=== PATIENT | female | born 1955 | race Caucasian/White ===

== ENCOUNTER 2019-08-19 14:53 | Emergency (ER) | payer BC ==
[2019-08-19 15:30] VITALS: BP 125/90
--- NOTE | 2019-08-19 15:56 | UC ---
Knee Pain HPI - HPI Summary HPI Summary: 64-year-old female presents with complaints of 3-4 day history of right posterior knee pain. Describes the pain as a "deep, pulling" that worsens with full extension and with weightbearing. Today she felt a "pop" in the back of the knee and has had increased pain since that time. No known injury. Denies erythema, edema, increased warmth, numbness, tingling, chest pain, shortness of breath, calf pain or swelling. - History of Current Complaint Chief Complaint: UCLowerExtremity Stated Complaint: RIGHT KNEE PAIN Time Seen by Provider: 08/19/19 15:29 Hx Obtained From: Patient Pain Intensity: 4 - Allergies/Home Medications Allergies/Adverse Reactions: Allergies Allergy/AdvReac Type Severity Reaction Status Date / Time No Known Allergies Allergy Verified 08/19/19 15:30 Home Medications: Home Medications Tiotropium Brom/Olodaterol [Stiolto Respimat Inh [place] (60 puff)] 2 puff INH DAILY 08/19/19 [History Confirmed 08/19/19] PMH/Surg Hx/FS Hx/Imm Hx Respiratory History: COPD - Surgical History Surgical History: Yes Surgery Procedure, Year, and Place: choley. bunion removed on right foot - Family History Known Family History: Positive: Non-Contributory - Social History Lives: With Family Alcohol Use: None Substance Use Type: None Smoking Status (MU): Former Smoker When Did the Patient Quit Smoking/Using Tobacco: 38 yrs ago Review of Systems All Other Systems Reviewed And Are Negative: Yes Constitutional: Negative: Fever, Chills Skin: Negative: Rash, Bruising Respiratory: Negative: Shortness Of Breath Cardiovascular: Negative: Chest Pain Physical Exam - Summary Physical Exam Summary: GENERAL APPEARANCE: Well developed, well nourished, alert and cooperative, older adult female who appears to be in no acute distress. CARDIAC: Normal S1 and S2. No S3, S4 or murmurs. Rhythm is regular. There is no peripheral edema, cyanosis or pallor. Extremities are warm and well perfused. Capillary refill is less than 2 seconds. Peripheral pulses intact. LUNGS: Clear to auscultation without rales, rhonchi, wheezing or diminished breath sounds. ABDOMEN: Positive bowel sounds. Soft, nondistended, nontender. No guarding or rebound. No masses or hepatosplenomegally. MUSKULOSKELETAL: Normal muscular development. Posterior right knee tenderness with a cystic lesion noted with knee at full extension. Full passive ROM. No crepitus, erythema, or edema. Calf supple and non-tender. SKIN: Skin normal color, texture and turgor with no lesions or eruptions. Triage Information Reviewed: Yes Vital Signs: Initial Vital Signs Temp 99.3 F 08/19/19 15:19 Pulse 73 08/19/19 15:19 Resp 18 08/19/19 15:19 BP 125/90 08/19/19 15:19 Pulse Ox 99 08/19/19 15:19 Vital Signs Reviewed: Yes Diagnostics - Radiology No standard instances Radiology Interpretation Completed By: Radiologist Summary of Radiographic Findings: Order Information: KNEE RIGHT 4+ VWS. Indication: Right knee pain. 4 views of the right knee demonstrates no fracture or dislocation. No other bone or joint abnormality is noted. IMPRESSION: No fracture of the right knee is noted. Knee Pain Course/Dx - Course Course Of Treatment: 64-year-old female presents with complaints of 3-4 day history of right posterior knee pain. Describes the pain as a "deep, pulling" that worsens with full extension and with weightbearing. Today she felt a "pop" in the back of the knee and has had increased pain since that time. No known injury. Denies erythema, edema, increased warmth, numbness, tingling, chest pain, shortness of breath, calf pain or swelling. Afebrile. Vital signs stable. Patient had posterior right knee tenderness with a cystic lesion noted with knee at full extension. Full passive ROM. No crepitus, erythema, or edema. Calf supple and non-tender. Patient was given naproxen 500 mg PO for the pain. X-ray demonstrated no fracture or dislocation. Reviewed results with the patient. Discussed with the patient that I suspect that she may have a Padilla's cyst would be unable to confirm the diagnosis at this time as I do not have ultrasound available. Recommending conservative treatment including NSAIDs and RACE. She is to follow-up with her primary care provider or with orthopedic surgery in 5-7 days if symptoms are not improving. Anticipatory guidance him warning symptoms were reviewed with the patient. Verbalizes understanding and agrees with plan of care. - Differential Dx/Diagnosis Differential Diagnosis/HQI/PQRI: Bursitis, DVT, Fracture (Closed), Gout, Infection, Sprain, Tendonitis, Other - Arthritis, Padilla's cyst Provider Diagnosis: Posterior right knee pain Discharge ED - Sign-Out/Discharge Documenting (check all that apply): Patient Departure All imaging exams completed and their final reports reviewed: Yes - Discharge Plan Condition: Stable Disposition: HOME Prescriptions: Naproxen [Naproxen 500 mg tab] 500 mg PO Q12HR #30 tablet Patient Education Materials: Bakers Cyst (ED), Knee Pain (ED) Referrals: Meghan Zambrano MD [Primary Care Provider] - 5 Days Trae Acosta MD [Medical Doctor] - Additional Instructions: The x-ray performed in the clinic today showed no evidence of a fracture. I suspect that you may have a condition called a Padilla's cyst however do not have ultrasound available at this time to confirm the diagnosis. Rest the knee as much as possible. Apply ice to the affected area for 15-20 minutes at least 4 times a day to help with the pain and swelling. Elevate the leg to help reduce swelling. Take naproxen 500 mg 1 tab every 12 hours with food for the next 5 days then may take every 12 hours as needed for pain. You were given a dose in the clinic at 4:45 pm. Follow up with your primary care provider in 5-7 days if symptoms do not improve. Seek immediate medical attention if you have severe pain not managed with pain medication, you are unable to walk or bear any weight despite using pain medication, develop numbness or tingling in the leg, foot, or toes, or have any worsening of symptoms. - Billing Disposition and Condition Condition: STABLE Disposition: Home
[2019-08-19] MEDS ORDERED: Naproxen TAB* 250 MG PO ONE (16:03)
[2019-08-19] MEDS ORDERED: Naproxen TAB* 250 MG ONE (16:21)
== END 2019-08-19 17:29 | disposition home or self-care (01) ==
LOC: UCCORT 14:53
DX: M25.561 Pain in right knee (principal); J44.9 Chronic obstructive pulmonary disease, unspecified; Z87.891 Personal history of nicotine dependence; Z79.899 Other long term (current) drug therapy
CPT/HCPCS: 99202; A9270-GY; G0463